=== PATIENT | female | born 1945 | race Two or more races ===

== ENCOUNTER → 2024-03-25 | Outpatient (CLI) | payer MEDICARE, BC, SELFPAY ==
[2024-03-25 14:21] LABS: Albumin, Serum 4.4 gm/dL (3.4-4.8); Anion Gap 6 (7-16); BUN/Creatinine Ratio 16 Ratio (12-20); Blood Urea Nitrogen 26 mg/dL (9-23); Calcium 9.9 mg/dL (8.3-10.6); Calcium (Corrected) 9.9 mg/dL (8.5-10.1); Carbon Dioxide 28.8 mMol/L (20.0-31.0); Chloride 104 mMol/L (98-107); Creatinine (Component) 1.6 mg/dL (0.6-1.3); Glucose 128 mg/dL (74-106); Osmolality,Calculated 284 (275-295); Phosphorous 2.2 mg/dL (2.4-5.1); Potassium 3.9 mMol/L (3.4-5.1); Sodium 139 mMol/L (136-145); eGFR 33 See Note
== END | disposition home or self-care (01) ==
LOC: COPL 13:19
PROVIDERS: PCP Family Medicine; Referring Provider Family Medicine; Visit Provider Family Medicine
DX: J44.1 Chronic obstructive pulmonary disease with (acute) exacerbation (principal)
CPT/HCPCS: 36415; 80069

== ENCOUNTER → 2024-03-28 | Outpatient (CLI) | payer MEDICARE, BC, SELFPAY ==
--- NOTE | 2024-03-28 11:00 | XR_ITS ---
Examination: CTA chest with intravenous contrast 2-D reconstructions 3-D reconstructions, vascular Date and time of exam: March 28, 2024 1107 hours INDICATIONS: COPD with intermittent shortness breath beginning one year ago CTDI: vol (mGy) 9.08 DLP: (mGycm) 219 Technique: Multiple axial sections of the thorax have been obtained. 3 mm slice thickness, from below the hemidiaphragms to above the apices of the lungs. Mediastinal and lung density settings have been obtained. 2-D sagittal and coronal reconstructions. 3-D angiographic renderings, 3-D volume renderings, 3D post processing, vascular maximum intensity projections obtained. Contrast administered is 60 cc Isovue-300. Low dose protocols were performed. One or more of the following dose reduction techniques were used; automated exposure control, adjustment of the mA and/or KV according to patient size, use of iterative reconstruction technique. Findings: No thoracic aortic aneurysmal dilatation No pulmonary artery emboli No paratracheal tracheobronchial or bronchopulmonary adenopathy Multiple bilateral subcentimeter pulmonary nodules as well as an 11 mm pulmonary nodule right lower lobe image 169, no definite change compared with May 25, 2023, excepting the 11 mm pulmonary nodule right lower lobe COPD with areas of airspace destruction No visualized liver or splenic lesion Absent gallbladder No pancreatic or adrenal mass Moderate thoracic spondylosis IMPRESSION: COPD Negative for pulmonary artery emboli 11 mm pulmonary nodule right lower lobe Recommend continued 6 month follow-up CT chest without contrast
== END | disposition home or self-care (01) ==
PROVIDERS: PCP Family Medicine; Referring Provider Physician Assistant; Visit Provider Physician Assistant
DX: J44.1 Chronic obstructive pulmonary disease with (acute) exacerbation (principal); R91.1 Solitary pulmonary nodule
CPT/HCPCS: 71275; A4649; Q9967

== ENCOUNTER → 2024-06-11 | Outpatient (CLI) | payer MEDICARE, BC, SELFPAY ==
--- NOTE | 2024-06-11 11:30 | XR_ITS ---
Examination: Screening digital mammography, bilateral Computer aided detection 3-D breast Tomosynthesis, bilateral Date and time of exam: June 11, 2024 1141 hours Compared to mammograms dating to July 08, 2015 Indication: Screening Technique: Nonmagnified MLO, CC views of the breasts to been obtained, reconstructed from 3-D Tomosynthesis images. R2 computer aided detection program utilized for evaluation of suspicious masses and/or abnormal calcifications. 3-D Tomosynthesis images obtained. Findings: The breasts are extremely dense, which limits the sensitivity of mammography 18 mm focal asymmetry outer left breast CC view, 6.5 cm from the nipple 8 mm focal asymmetry lower left breast MLO view, 8.8 cm from the nipple IMPRESSION: BI-RADS Category 0: Incomplete: Need additional imaging evaluation 18 mm focal asymmetry outer left breast CC view, recommend follow-up spot compression views upper outer quadrant left breast 8 mm focal asymmetry lower left breast MLO view, recommend follow-up spot compression views lower outer quadrant left breast as well as left breast sonography to complete the workup
== END | disposition home or self-care (01) ==
LOC: CDIM 11:13
PROVIDERS: Referring Provider Physician Assistant; Visit Provider Physician Assistant
DX: Z12.31 Encounter for screening mammogram for malignant neoplasm of breast (principal); N64.89 Other specified disorders of breast
CPT/HCPCS: 77063; 77067

== ENCOUNTER → 2024-07-10 | Outpatient (CLI) | payer MEDICARE, BC, SELFPAY ==
--- NOTE | 2024-07-10 14:27 | XR_ITS ---
Examination: Lumbar spine, 5 views Technique: Lumbar spine AP, lateral, coned lateral lower lumbar spine, bilateral obliques 5 views Exam date and time: July 10, 2024 1435 hours INDICATIONS: Low back pain one month radiating down both legs FINDINGS: Thoracolumbar levoscoliosis 15 degrees Advanced diffuse facet arthropathy No lumbar fracture Advanced diffuse lumbar degenerative disc disease Moderate lumbar spondylosis IMPRESSION: Advanced diffuse lumbar degenerative disc disease with significant spinal stenosis
== END | disposition home or self-care (01) ==
PROVIDERS: PCP Family Medicine; Referring Provider Family Medicine; Visit Provider Family Medicine
DX: M51.369 Other intervertebral disc degeneration, lumbar region without mention of lumbar back pain or lower extremity pain (principal); M48.061 Spinal stenosis, lumbar region without neurogenic claudication
CPT/HCPCS: 72110

== ENCOUNTER → 2024-07-12 | Outpatient (CLI) | payer MEDICARE, BC, SELFPAY ==
--- NOTE | 2024-07-12 15:00 | XR_ITS ---
Examination: Breast ultrasound, unilateral, left Date and time of exam: July 22, 2024 1515 hours INDICATIONS: Mammogram June 08, 2024 18 mm focal asymmetry outer left breast CC view, 8 mm focal asymmetry lower left breast MLO view Technique: Real-time gasca scale ultrasonographic imaging performed left breast including all 4 quadrants as well as nipple retroareolar and axillary region. Findings: 1:00 cyst 4 x 4 millimeter 2:00 cyst 3 x 3 mm No solid nodules 26 mm left axillary lymph node IMPRESSION: BI-RADS Category 2: Benign findings
== END | disposition home or self-care (01) ==
LOC: CDIM 15:02
PROVIDERS: Referring Provider Physician Assistant; Visit Provider Physician Assistant
DX: N60.02 Solitary cyst of left breast (principal)
CPT/HCPCS: 76641

== ENCOUNTER 2024-08-01 13:00 | Outpatient (RCR) | payer MEDICARE, BC, SELFPAY ==
--- NOTE | 2024-07-22 15:13 | PT.OIERPT ---
PT OP Initial Eval Patient Information Outpatient Physical Therapy Treatment Date: 07/22/24 Visit Reasons: BACK PAIN Medical Diagnosis: M54.16 Treatment Dx #1: Back Pain Treatment Dx #2: Difficulty Walking Start of Care: 07/22/24 Date of Onset: 6 months ago Smoking Status Smoking Status: Never smoker Initial Assessment Subjective: Pt is a 79 y/o female reports of chronic back pain worsening ~ 6 months ago. Pt's most recent xray showed severe diffuse DDD of the lumbar spine. Pt is pending MRI in a few weeks. Pt has limitation with standing, walking, sitting, chores, self care, balance, and recreational activities. Pt further mentioned she has COPD and uses O2 at night. Objective: L/S AROM (in sitting): all motions are 75 % towards end range Hip PROM: all motions are WFL except IR Hip MMTs: grossly 3+/5 Muscle Length: Hs tightness Special Test (+) slump Assessment: Pt demonstrate back pain with BLE weakness leading to difficulty with ADLs. Pt will attempt physical therapy if pain persist Pt will be refer back to provider for further consultation. Short Term and Group Home Goals 1) Decrease back pain to 2/10 in 6 wks to be able to sit and stand more than 30 mins 2) Increase hip MMTs grossly to 4-/5 in 6 wks to be able to walk more than 30 mins 3) Increase core strength WFL in 6 wks to be able to perform recreational activities 4) Indep with HEP Treatment Plan 1) Manual Therapy 2) Therapeutic Activities 3) Therapeutic Exercises 4) Modalities (ice, heat) Frequency and Duration: 2 x wk for 6 wks Certification Dates: 07/22/24 to 10/22/24 Procedure Charges OP PT Eval Mod Complex 30 minutes: Yes
--- NOTE | 2024-07-30 13:54 | PT.ODAYNRPT ---
PT Outpatient Daily Note OP Daily Note Outpatient Physical Therapy Treatment Date: 07/30/24 Visit Reasons: BACK PAIN Subjective: Pt's back is okay. Pt recently seen her PCP and will also be getting a neck MRI. Objective: Please see flow chart for list of ther ex performed Assessment: difficulty initiating posterior pelvic tilt, however, with practice patient was able to perform correctly. Pt's O2 sat in the 90s with supine exercises Plan: Continue with PT Length of Time (minutes) of Treatment: 30 Minutes Procedure Charges Therapeutic Exercise 30 minutes: Yes
--- NOTE | 2024-08-01 13:40 | PT.ODAYNRPT ---
PT Outpatient Daily Note OP Daily Note Outpatient Physical Therapy Treatment Date: 08/01/24 Visit Reasons: BACK PAIN Subjective: Pt reports she was sore after last session but was mild, resolved next day. Objective: Please see flow sheet for ther ex list. Assessment: Performed light manual HS stretch, pt tolerated well. Avoid laying pt flat in supine due to COPD, no SOB during PT session today. Plan: Assess response to treatment. Length of Time (minutes) of Treatment: 30 Minutes NEWSPAPER PRESS OPERATOR APPRENTICE Service Modifier Method I: Divide the number of min of care provided by the NEWSPAPER PRESS OPERATOR APPRENTICE/BE by the total min of care provided then multiply by 100. If greater than 11 percent modifier is required. Method II: Divide the total time of care provided to patient by 10 (round to the nearest whole number) and add 1 min. to set the minimum time requirement. If treatment total was 60 min., then 10% of 6 min PT CQ modifier applied: CQ Modifier applied Procedure Charges Therapeutic Exercise 30 minutes: Yes
== END 2024-08-05 23:59 | disposition home or self-care (01) ==
LOC: CPTX 13:00
PROVIDERS: PCP Physician Assistant; Referring Provider Physician Assistant; Visit Provider Physician Assistant
DX: M51.16 Intervertebral disc disorders with radiculopathy, lumbar region (principal); R26.2 Difficulty in walking, not elsewhere classified; R26.89 Other abnormalities of gait and mobility; J44.9 Chronic obstructive pulmonary disease, unspecified
CPT/HCPCS: 97110; 97162

== ENCOUNTER → 2024-08-06 | Outpatient (CLI) | payer MEDICARE, BC, SELFPAY ==
--- NOTE | 2024-08-06 15:30 | XR_ITS ---
Examination: MRI lumbar spine without contrast Date and time of exam: August 06, 2024 1617 hours INDICATIONS: Low back pain beginning 3 months ago, lumbar spine surgery 2015, radicular pain radiating to the legs Technique: Multiple MRI axial and sagittal sections lumbar spine. Sagittal T2-weighted images, TR 3500, TE 118 T1 weighted transverse sections, TR 688 T8.5, T2-weighted sagittal sections T1 weighted sagittal sections TR 621, TE 30 T2 axial sections, TR 4, 190, TE 84. Findings: Adequate alignment lumbar vertebral bodies No lumbar fracture Diffuse lumbar disc desiccation Advanced disc during all lumbar levels L5-S1 7 mm central lumbar disc bulge displacing both right and left S1 nerve roots and producing mild bilateral L5 ganglionic compression L4-L5 5 mm central lumbar disc bulge extending to the foraminal regions with mild bilateral L5 ganglionic compression L3-L4 6 mm central left paracentral disc bulge extending to the left foramen with moderate left L3 ganglionic compression L2-L3 5 mm central lumbar disc bulge L1-L2 8mm central paracentral disc bulge IMPRESSION: Prominent diffuse lumbar spinal stenosis as above
== END | disposition home or self-care (01) ==
PROVIDERS: PCP Physician Assistant; Referring Provider Physician Assistant; Visit Provider Physician Assistant
DX: M48.061 Spinal stenosis, lumbar region without neurogenic claudication (principal)
CPT/HCPCS: 72148

== ENCOUNTER → 2024-08-07 | Outpatient (CLI) | payer MEDICARE, BC, SELFPAY ==
--- NOTE | 2024-08-07 16:00 | XR_ITS ---
Examination: MRI cervical spine without intravenous contrast Date and time of exam: August 07, 2024 1710 hours Comparison November 07, 2006 Technique: Multiple axial and sagittal sections of the cervical spine to been obtained. T2 weighted sagittal sections, TR 3, 270, TE 117 T1-weighted sagittal sections, TR 500, TE 11 T1-weighted axial sections, TR 607, TE 12, axial sections TR 18, TE 27 and T2 weighted transverse sections, TR 3920, TE 122. Findings: Severe cervical dextroscoliosis Grade 1 anterolisthesis C3 on C4 C4 on C5 No cervical fracture Diffuse cervical disc desiccation All of the images are degraded by patient motion C3-C4 3 mm central subarticular osteophyte disc complex with advanced left neural foraminal stenosis C4-C5 advanced left neural foraminal stenosis C6-C7 moderate bilateral neural foraminal stenosis IMPRESSION: Limited study, all of the images are degraded by patient motion C3-C4 moderate to severe overall spinal stenosis, 3 mm central subarticular osteophyte disc complex with advanced left neural foraminal stenosis C4-C5 advanced left neural foraminal stenosis C6-C7 moderate bilateral neural foraminal stenosis
== END | disposition home or self-care (01) ==
LOC: SMRI 15:33
PROVIDERS: PCP Physician Assistant; Referring Provider Physician Assistant; Visit Provider Physician Assistant
DX: M48.02 Spinal stenosis, cervical region (principal); M25.78 Osteophyte, vertebrae
CPT/HCPCS: 72141

== ENCOUNTER 2024-09-03 13:30 | Outpatient (RCR) | payer MEDICARE, BC, SELFPAY ==
--- NOTE | 2024-08-06 14:21 | PT.ODAYNRPT ---
PT Outpatient Daily Note OP Daily Note Outpatient Physical Therapy Treatment Date: 08/06/24 Visit Reasons: BACK PAIN Subjective: Pt's back is still hurting but seems to be able to sit and stand a little longer. Pt mentioned she likes to lean over her reclining chair which may also be irritating her spine and neck. Objective: Please see flow chart for list of ther ex performed Assessment: added more sitting exercise with good tolerance. Pt saturated in 95's-97's in today's session Plan: Continue with PT Length of Time (minutes) of Treatment: 30 Minutes Procedure Charges Therapeutic Exercise 30 minutes: Yes
--- NOTE | 2024-08-08 14:06 | PT.ODAYNRPT ---
PT Outpatient Daily Note OP Daily Note Outpatient Physical Therapy Treatment Date: 08/08/24 Visit Reasons: BACK PAIN Subjective: Pt's back is doing okay. No new concerns to report. Objective: Please see flow chart for list of ther ex perfomed Assessment: patient instructed on tieing her therband at home for the rows exercises. Pt had difficulty completing supine nerve floss exercise due to cramping of the lower extremities. Plan: Continue with PT Length of Time (minutes) of Treatment: 30 Minutes Procedure Charges Therapeutic Exercise 30 minutes: Yes
--- NOTE | 2024-08-13 14:51 | PT.ODAYNRPT ---
PT Outpatient Daily Note OP Daily Note Outpatient Physical Therapy Treatment Date: 08/13/24 Visit Reasons: BACK PAIN Subjective: Pt reports back is doing ok, no new complaints. Objective: Please see flow sheet for ther ex list. Assessment: Pt requires rest breaks in between exercises due to pt get SOB pt has COPD. Plan: Continue with pOC. Length of Time (minutes) of Treatment: 30 Minutes Procedure Charges Therapeutic Exercise 30 minutes: Yes
--- NOTE | 2024-08-15 14:38 | PT.ODAYNRPT ---
PT Outpatient Daily Note OP Daily Note Outpatient Physical Therapy Treatment Date: 08/15/24 Visit Reasons: BACK PAIN Subjective: Pt LBP today and mentioned she is feeling a little off today. Pt c/o L arm pain that goes from neck down to the hand, pt is having a hard time relaxing today. 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 Objective: Please see flow sheet for ther ex list. Pt spo2 during PT session 95% at RA. Assessment: Pt demonstrates poor activity tolerance today due to c/o L UE symptoms. Plan: Assess response to treatment. Length of Time (minutes) of Treatment: 30 Minutes BAND TUMBLER Service Modifier Method I: Divide the number of min of care provided by the BAND TUMBLER/GAS AND OIL CHECKER by the total min of care provided then multiply by 100. If greater than 11 percent modifier is required. Method II: Divide the total time of care provided to patient by 10 (round to the nearest whole number) and add 1 min. to set the minimum time requirement. If treatment total was 60 min., then 10% of 6 min PT CQ modifier applied: CQ Modifier applied Procedure Charges Therapeutic Exercise 30 minutes: Yes
--- NOTE | 2024-08-20 15:29 | PT.ODAYNRPT ---
PT Outpatient Daily Note OP Daily Note Outpatient Physical Therapy Treatment Date: 08/20/24 Visit Reasons: BACK PAIN Subjective: Pt feels physical therapy exercises alleviate back pain. Pt wants to complete therapy for the back than start her neck. Pt wants to find a place that will massage her whole back. Objective: Please see flow chart for list of ther ex performed Assessment: advised to seek massage therapist for body massage but decline due to fear of therapist hurting her more. Progress patient's low row and row exercises to standing with good tolerance Plan: Continue with PT Length of Time (minutes) of Treatment: 30 Minutes Procedure Charges Therapeutic Exercise 30 minutes: Yes
--- NOTE | 2024-08-22 15:01 | PT.ODAYNRPT ---
PT Outpatient Daily Note OP Daily Note Outpatient Physical Therapy Treatment Date: 08/22/24 Visit Reasons: BACK PAIN Subjective: Pt's back is doing okay. Pt mentioned her hip feels stiff. Objective: Please see flow chart for list of ther ex performed Assessment: progress patient to more hip exercises and core strengthening with good tolerance Plan: Continue with PT Length of Time (minutes) of Treatment: 30 Minutes Procedure Charges Therapeutic Exercise 30 minutes: Yes
--- NOTE | 2024-08-29 14:50 | PT.ODAYNRPT ---
PT Outpatient Daily Note OP Daily Note Outpatient Physical Therapy Treatment Date: 08/29/24 Visit Reasons: BACK PAIN Subjective: Pt's back is okay. Pt mentioned her condenser went out and didn't have O2 for the night. Pt felt really fatigue last night. Objective: Please see flow chart for list of ther ex performed Assessment: tolerate exercises with minimal pain Plan: Continue with PT Length of Time (minutes) of Treatment: 30 Minutes Procedure Charges Therapeutic Exercise 30 minutes: Yes
--- NOTE | 2024-09-03 14:30 | PT.ODAYNRPT ---
PT Outpatient Daily Note OP Daily Note Outpatient Physical Therapy Treatment Date: 09/03/24 Visit Reasons: BACK PAIN Subjective: Pt's legs are feeling weaker. Pt mention her arms are getting worse especially the right one. Pt will see neurologist on the 16 of september. Objective: Please see flow chart for list of ther ex performed Assessment: tolerate exercises with minimal pain Plan: Continue with PT Length of Time (minutes) of Treatment: 30 Minutes Procedure Charges Therapeutic Exercise 30 minutes: Yes
== END 2024-09-04 23:59 | disposition home or self-care (01) ==
LOC: CPTX 13:30
PROVIDERS: PCP Physician Assistant; Referring Provider Physician Assistant; Visit Provider Physician Assistant
DX: M54.16 Radiculopathy, lumbar region (principal); R26.2 Difficulty in walking, not elsewhere classified; R26.89 Other abnormalities of gait and mobility; J44.9 Chronic obstructive pulmonary disease, unspecified; Z99.81 Dependence on supplemental oxygen
CPT/HCPCS: 97110

== ENCOUNTER 2024-09-05 14:23 | Outpatient (RCR) | payer MEDICARE, BC, SELFPAY ==
--- NOTE | 2024-09-05 14:42 | PT.ODS1RPT ---
PT OP Progress/Discharge Note Date of Service: 09/05/24 Progress Note/DC Note Progress Note/Discharge Note: DC Note Patient Information Visit Reasons: BACK PAIN Medical Diagnosis: M54.16 Treatment Dx #1: Back Pain Service Continue Service or Discharge: Discharge Discharge Date: 09/05/24 Status Subjective: Pt's back is okay. Pt still has pain down the legs but will like to stop physical therapy due to wanting to start neck therapy. Pt has been able to walk, stand, perform chores, and self care with less limitaiton. Objective: L/S AROM: all motions are WFL Hip PROM: all motions are WFL Hip MMTs: grossly 3+/5 Assessment: Pt demonstrate functional L/S mobility and core strength allowing her to resume ADLs, chores, and self care, and ambulate. At this time Pt will no longer benefit from physical therapy due to minimal progression towards goals. Pt was instructed on HEP last session and educated to continue exercises to maintain overall mobility. Pt performed all exercises safely, thank you for your referrals. Plan: D/C home with HEP and follow up with MD MANRIQUE Procedure Charges Therapeutic Exercise 30 minutes: Yes
== END 2024-10-05 23:59 | disposition home or self-care (01) ==
LOC: CPTX 14:23
PROVIDERS: PCP Physician Assistant; Referring Provider Physician Assistant; Visit Provider Physician Assistant
DX: M51.16 Intervertebral disc disorders with radiculopathy, lumbar region (principal); J44.9 Chronic obstructive pulmonary disease, unspecified; R26.2 Difficulty in walking, not elsewhere classified; R26.89 Other abnormalities of gait and mobility; G89.29 Other chronic pain
CPT/HCPCS: 97110

== ENCOUNTER 2024-09-17 14:34 | Emergency (ER) | payer MEDICARE, BC, SELFPAY ==
[2024-09-17 14:39] VITALS: BMI 24.4
[2024-09-17 15:16] VITALS: BP 169/85; PULSE 79; RESP 18; TEMP 37.2; O2SAT 96
--- NOTE | 2024-09-17 15:26 | XR_ITS ---
Examination: CT cervical spine without contrast 2-D sagittal reconstructions 2-D coronal reconstructions 3-D reconstructions. Exam date and time:September 17, 2024 1539 hours INDICATIONS: Patient fell today with injury to the neck, neck pain CTDI:vol (mGy) 12 DLP: (mGycm) 255 Technique: Multiple 2 mm axial sections of the cervical spine have been obtained. The coronal and sagittal reconstructions have been obtained. 3-D reconstructions have been obtained. Low dose protocols were performed. One or more of the following dose reduction techniques were used; automated exposure control, adjustment of the mA and/or KV according to patient size, use of iterative reconstruction technique. Findings: Axial sections demonstrate intact base of the skull. Grade 1 anterolisthesis C3 on C4 C1 exhibit satisfactory relationship to the odontoid. No acute cervical vertebral body fracture seen. Alignment posterior spinous processes satisfactory. Impression: Study is limited secondary to patient tremors and nonstandard positioning No gross fracture Recommend 3 view plain series cervical spine follow-up
--- NOTE | 2024-09-17 15:26 | XR_ITS ---
Examination: CT maxillofacial, without intravenous contrast. 2-D sagittal reconstructions. 3-D reconstructions. Date and time of exam:September 17, 2024 1539 hours INDICATIONS: Patient fell today with injury to the face, facial pain CTDI: vol (mGy):18 DLP: (mGycm):328 Technique: Multiple axial images of maxillofacial region, 3.0 mm slice thickness. 2-D sagittal and coronal reconstructions. 3-D reconstructions. Low dose protocols were performed. One or more of the following dose reduction techniques were used; automated exposure control, adjustment of the mA and/or KV according to patient size, use of iterative reconstruction technique. Findings: Patient motion and nonstandard views significantly limits this study Frontal bone appears intact as well as orbital rims No nasal bone fracture No depression zygomatic arches Maxilla mandible grossly intact IMPRESSION: Significantly limited study No gross fracture.
--- NOTE | 2024-09-17 15:26 | XR_ITS ---
Examination: CT brain head without contrast. 2-D sagittal coronal reconstructions Date and time of exam:September 17, 2024 1539 hours INDICATIONS: Patient fell today with injury to the head, head pain CTDI: vol (mGy):43 DLP: (mGycm):848 Technique: Multiple CT axial sections of the brain have been obtained, 5 mm slice thickness. Contrast has not been administered. 2-D sagittal, coronal reconstructions have been obtained Low dose protocols were performed. One or more of the following dose reduction techniques were used; automated exposure control, adjustment of the mA and/or KV according to patient size, use of iterative reconstruction technique. Findings: No significant ventricular enlargement. Intra-axial or extra-axial hemorrhage density is not seen. No mass effect or midline shift Basal cisterns are not remarkable. Fourth ventricle is midline. Cranial vault intact. Impression: Negative for acute hemorrhage, mass effect or midline shift
--- NOTE | 2024-09-17 15:27 | PD.EDFALL ---
ED Fall Injury RME/HPI General Chief Complaint: Fall Stated Complaint: GROUND LEVEL FALL ON MONDAY, HIT HER HEAD Time Seen by Provider: 09/17/24 15:01 Arrival date/time: 09/17/24 14:34 This is a 79-year-old woman that comes in today with complaints of head injury. Patient states she was sitting on the toilet and she went to pick something up and fell forward. Patient states she fell into the shower face first. Patient denies any loss of consciousness. Patient denies any vision issues. Patient denies any vomiting. Patient has bruising to her face forehead. Patient complains of mild pain to her head. Related Data Home Medications ?Medication ?Instructions ?Recorded ?Confirmed Estradiol/Norethindrone Acet 0.5 mg PO DAILY ##0 03/26/17 12/19/23 (Amabelz 1 mg-0.5 mg Tablet) Tramadol Hcl 50 mg PO QDAY PRN Pain (Scale 03/26/17 12/19/23 Score 4-6) ##0 levothyroxine 100 mcg tablet 100 mcg PO ACBR #0 tabs 03/26/17 12/19/23 (Synthroid) lorazepam 2 mg tablet 1 mg PO HS PRN Anxiety ##0 03/26/17 12/19/23 pantoprazole 40 mg tablet,delayed 40 mg PO QDAY ##0 03/26/17 12/19/23 release (Protonix) azathioprine 50 mg tablet 50 mg PO QDAY 02/07/23 12/19/23 fluticasone fur. 100 mcg-umeclid 1 inh inhalation QDAY 02/07/23 12/19/23 62.5 mcg-vilant 25 mcg inhalat.powder (Trelegy Ellipta) fluticasone fur. 100 mcg-umeclid 1 inh inhalation QDAY 02/07/23 12/19/23 62.5 mcg-vilant 25 mcg inhalat.powder (Trelegy Ellipta) folic acid 1 mg tablet 1 mg PO QDAY 02/07/23 12/19/23 loratadine 10 mg tablet 10 mg PO QDAY 02/07/23 12/19/23 prednisone 5 mg tablet 5 mg PO QDAY 02/07/23 12/19/23 Allergies Allergy/AdvReac Type Severity Reaction Status Date / Time lidocaine Allergy Mild Vomiting Verified 09/17/24 14:41 oxycodone Allergy Unknown Itching Verified 09/17/24 14:41 celery Allergy Verified 09/17/24 14:41 clonidine Allergy Verified 09/17/24 14:41 coffee (Coffea arabica) Allergy Verified 09/17/24 14:41 egg yolk Allergy Verified 09/17/24 14:41 garlic Allergy Verified 09/17/24 14:41 hops Allergy Verified 09/17/24 14:41 hydrocodone (From Vicodin) Allergy Verified 09/17/24 14:41 lactose Allergy Verified 09/17/24 14:41 mustard Allergy Verified 09/17/24 14:41 procaine Allergy Verified 09/17/24 14:41 vanilla extract flavor Allergy Verified 09/17/24 14:41 aspirin AdvReac Mild JITTERY Verified 09/17/24 14:41 AND UPSET STOMACH pseudoephedrine AdvReac Mild INCREASED Verified 09/17/24 14:41 BLOOD PRESSURE CODFISH Allergy Uncoded 09/17/24 14:41 STRING BEANS Allergy Uncoded 09/17/24 14:41 Course Orders Category Date Time Status CT cervical spine wo con Stat Exams 09/17/24 15:[address] facial bones wo con Stat Exams 09/17/24 15:[address] head/brain wo con Stat Exams 09/17/24 15:26 Ordered Vital Signs Vital signs: Vital Signs Temperature 98.9 F 09/17/24 15:16 Pulse Rate 79 09/17/24 15:16 Respiratory Rate 18 09/17/24 15:16 Blood Pressure 169/85 H 09/17/24 15:16 Pulse Oximetry (%) 96 09/17/24 15:16 Oxygen Delivery Method Room Air 09/17/24 15:16 Discharge Plan Prescriptions/Referrals Prescriptions/Med Rec: No Action levothyroxine [Synthroid] 100 MCG tablet 100 mcg PO ACBR Qty: 0 lorazepam 2 MG tablet 1 mg PO HS PRN (Reason: Anxiety) Qty: 0 pantoprazole [Protonix] 40 MG tablet,delayed release (DR/EC) 40 mg PO QDAY Qty: 0 Patient Comments: TO SUPPRESS GASTRIC SECRETIONS Estradiol/Norethindrone Acet (Amabelz 1 mg-0.5 mg Tablet) 1 EACH tablet 0.5 mg PO DAILY Qty: 0 Tramadol Hcl 50 MG tablet 50 mg PO QDAY PRN (Reason: Pain (Scale Score 4-6)) Qty: 0 prednisone 5 mg Tablet 5 mg PO QDAY azathioprine 50 mg Tablet 50 mg PO QDAY folic acid 1 mg Tablet 1 mg PO QDAY loratadine 10 mg Tablet 10 mg PO QDAY Trelegy Ellipta 100-62.5-25 mcg Blister With Device 1 inh INHALATION QDAY Trelegy Ellipta 100-62.5-25 mcg Blister With Device 1 inh INHALATION QDAY Patient/Caregiver Discharge Instructions Print Language: Ukrainian
--- NOTE | 2024-09-17 15:33 | PD.EDRME ---
Rapid Medical Screening Exam [facility] Arrival date/time: 09/17/24 14:34 This is a 79-year-old woman that comes in today with complaints of head injury. Patient states she was sitting on the toilet and she went to pick something up and fell forward. Patient states she fell into the shower face first. Patient denies any loss of consciousness. Patient denies any vision issues. Patient denies any vomiting. Patient has bruising to her face forehead. Patient complains of mild pain to her head. Patient states that she was sent by her primary doctor and physical therapist because they are afraid that she has broken bones. I have greeted and performed a focused initial assessment of this patient. Initial appropriate labs ordered at this time. A comprehensive ED assessment and evaluation of the patient and analysis of all test and completion of medical decision making process will be conducted by additional ED provider. Chief Complaint: Fall Time Seen by Provider: 09/17/24 15:01 Vital signs: Vital Signs Temperature 98.9 F 09/17/24 15:16 Pulse Rate 79 09/17/24 15:16 Respiratory Rate 18 09/17/24 15:16 Blood Pressure 169/85 H 09/17/24 15:16 Pulse Oximetry (%) 96 09/17/24 15:16 Oxygen Delivery Method Room Air 09/17/24 15:16
[2024-09-17 17:00] VITALS: BP 173/89; PULSE 74; RESP 18; TEMP 36.7; O2SAT 97
--- NOTE | 2024-09-17 17:19 | PC.NURSE ---
PATIENT STATES SHE IS GOING TO [facility] BECAUSE THEY ARE NOT GOING TO X RAY HER ARM AND SHE IS HUNGRY. PATIENT SEEN [facility].
== END 2024-09-17 17:39 | disposition left against medical advice (07) ==
PROVIDERS: Emergency Provider Emergency Medicine
DX: S00.83XA Contusion of other part of head, initial encounter (principal); W19.XXXA Unspecified fall, initial encounter; Z53.29 Procedure and treatment not carried out because of patient's decision for other reasons
CPT/HCPCS: 70450; 70486; 72125; 99281

== ENCOUNTER 2024-10-03 13:30 | Outpatient (RCR) | payer MEDICARE, BC, SELFPAY ==
--- NOTE | 2024-09-10 13:58 | PTNOTE_ITS ---
PT OP Initial Eval Patient Information Outpatient Physical Therapy Treatment Date: 09/10/24 Visit Reasons: CERVICAL RADICULOPATHY Medical Diagnosis: Cervical Radiculopathy Treatment Dx #1: Neck Pain Start of Care: 09/10/24 Date of Onset: 5 years ago Smoking Status Smoking Status: Never smoker Initial Assessment Subjective: Pt is a 79 y/o female reports of worsening neck pain (12/15) with arm weakness R>L worsening lately. Pt's most recent MRI showed multi-level moderate to severe stenosis. Pt has limitation with gripping, lifting, chores, self care, cooking, cleaning, and performing recreational activities. Pt has been diagnosed with dystonia ~ 5 years ago. 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 Short Term and Dye House Worker Goals 1) Increase c/s AROM WFL in 6 wks to be able to perform chores 2) Decrease neck pain to 2/10 in 6 wks to be able to perform sit more than 30 mins 3) Increase BUE MMTs grossly to 4/5 in 6 wks to be able to perform recreational activities 4) Increase right product manager financial services strength to 45 lbs in 6 wks to be able to perform self care activities 5) Indep with HEP Treatment Plan 1) Manual Therapy 2) Therapeutic Activities 3) Therapeutic Exercises 4) Modalities (ice, heat) Frequency and Duration: 2 x wk for 6 wks Certification Dates: 09/10/24 to 12/11/24 Procedure Charges OP PT Eval Mod Complex 30 minutes: Yes
--- NOTE | 2024-09-17 14:15 | PT.ODAYNRPT ---
PT Outpatient Daily Note OP Daily Note Outpatient Physical Therapy Treatment Date: 09/17/24 Visit Reasons: CERVICAL RADICULOPATHY Assessment: Pt came into today's session and reported that she has fallen middle of last week which she hit her face, right shoulder, and left forearm. Pt called PCP for an appt but was advised to head to the ER. Pt did not follow MD's recommendation and decided to stay home the next few days. Pt exhibit significant bruising of the face and was advised to follow up with PCP or ER for further clearance. physical therapy was withheld for the day and until further notice.
--- NOTE | 2024-09-19 14:43 | PT.ODAYNRPT ---
PT Outpatient Daily Note OP Daily Note Outpatient Physical Therapy Treatment Date: 09/19/24 Visit Reasons: CERVICAL RADICULOPATHY Subjective: Pt's neck is okay. Pt went to the ER and all imaging clear/negative. No imaging of the shoulder was recommended. Objective: Please see flow chart for list of ther ex performed Assessment: difficulty performing nerve floss due to arm fatigue, however, able to complete instructed reps after rest. Heat with stretching helped neck pain Plan: Continue with PT Length of Time (minutes) of Treatment: 30 Minutes Procedure Charges Therapeutic Exercise 30 minutes: Yes
--- NOTE | 2024-09-24 14:30 | PTNOTE_ITS ---
PT Outpatient Daily Note OP Daily Note Outpatient Physical Therapy Treatment Date: 09/24/24 Visit Reasons: CERVICAL RADICULOPATHY Subjective: Pt's neck feels better. Pt also notice less intense right arm pain. Objective: Please see flow chart for list of ther ex performed Assessment: cues to decrease upper trape recruitment with nerve floss and head [place] exerci ses. Improved c/s flexibility post PT session with less left sidebend noted Plan: Continue with PT Length of Time (minutes) of Treatment: 30 Minutes Procedure Charges Therapeutic Exercise 15 minutes: Yes Manual Section Weaver 15 minutes: Yes
--- NOTE | 2024-09-26 14:20 | PT.ODAYNRPT ---
PT Outpatient Daily Note OP Daily Note Outpatient Physical Therapy Treatment Date: 09/26/24 Visit Reasons: CERVICAL RADICULOPATHY Subjective: Pt's neck is better and more loose lately. Pt also notice less arm pain. Pt's arms very sore after last session Objective: Please see flow chart for list of ther ex performed Assessment: decrease upper trape and SCM tightness post PT session. No resistance band today due to reported soreness post last session Plan: Continue with PT Length of Time (minutes) of Treatment: 30 Minutes Procedure Charges Therapeutic Exercise 15 minutes: Yes Manual Analyst Competitive Intelligence 15 minutes: Yes
--- NOTE | 2024-10-01 14:31 | PT.ODAYNRPT ---
PT Outpatient Daily Note OP Daily Note Outpatient Physical Therapy Treatment Date: 10/01/24 Visit Reasons: CERVICAL RADICULOPATHY Subjective: Pt's neck is better. Pt mentioned that less arm pain; pain is up to the elbow now. Objective: Please see flow chart for list of ther ex performed Assessment: progressing with c/s AROM and cues to correct head position into neutral. Towards the end of the session; patient was able to keep head into neutral position with arm exercises Plan: Continue with PT Length of Time (minutes) of Treatment: 30 Minutes Procedure Charges Therapeutic Exercise 30 minutes: Yes
--- NOTE | 2024-10-03 14:04 | PT.ODAYNRPT ---
PT Outpatient Daily Note OP Daily Note Outpatient Physical Therapy Treatment Date: 10/03/24 Visit Reasons: CERVICAL RADICULOPATHY Subjective: Pt's neck is more sore after last session. Pt continues to report of less radicular pain down the arms. Objective: Please see flow chart for list of ther ex performed Assessment: tolerate exercises with minimal pain Plan: Continue with PT Length of Time (minutes) of Treatment: 30 Minutes Procedure Charges Therapeutic Exercise 30 minutes: Yes
== END 2024-10-05 23:59 | disposition home or self-care (01) ==
LOC: CPTX 13:30
PROVIDERS: PCP Physician Assistant; Referring Provider Physician Assistant; Visit Provider Physician Assistant
DX: M54.12 Radiculopathy, cervical region (principal); G24.9 Dystonia, unspecified; R26.89 Other abnormalities of gait and mobility
CPT/HCPCS: 97110; 97140; 97162

== ENCOUNTER 2024-10-10 13:30 | Outpatient (RCR) | payer MEDICARE, BC, SELFPAY ==
--- NOTE | 2024-10-08 15:14 | PT.ODAYNRPT ---
PT Outpatient Daily Note OP Daily Note Outpatient Physical Therapy Treatment Date: 10/08/24 Visit Reasons: neck pain Subjective: Pt's neck is less tight. Pt mentioned she was less sore after last session and wants to stick to intensity. Objective: Please see flow chart for list of ther ex performed Assessment: tolerate exercises with minimal pain; less cues given to patient for head posture correction Plan: Continue with PT Length of Time (minutes) of Treatment: 30 Minutes Procedure Charges Therapeutic Exercise 30 minutes: Yes
--- NOTE | 2024-10-10 15:47 | PT.ODS1RPT ---
PT OP Progress/Discharge Note Date of Service: 10/10/24 Progress Note/DC Note Progress Note/Discharge Note: DC Note Patient Information Visit Reasons: neck pain Medical Diagnosis: Cervical Radiculopathy Treatment Dx #1: Neck Pain Service Continue Service or Discharge: Discharge Discharge Date: 10/10/24 Status Subjective: Pt's neck is a little better with less arm pain since starting physical therapy. Pt still has limitation with ADLs, however, it's been easier to perform tasks. At this time Pt will like to stop physical therapy for her neck and work on balance and LE strength. Objective: C/S AROM: all motions are 50% towards end range BUE AROM: all motions are WNL BUE MMTs: grossly 3/5 Search Optimization Analyst Strength L: 53 lbs R: 40 lbs Assessment: Pt demonstrate slight improvement with c/s mobility and overall BUE strength allowing her to resume light ADLs with less limitation. Pt has partially met set goals in therapy. Pt was instructed on HEP last session and educated to continue exercises to maintain overall mobility. Pt performed all exercises safely, thank you for your referrals. Plan: D/C home with HEP and follow up with MD MANRIQUE Procedure Charges Therapeutic Exercise 15 minutes: Yes Manual Turn Supervisor 15 minutes: Yes
== END 2024-11-04 23:59 | disposition home or self-care (01) ==
LOC: CPTX 13:30
PROVIDERS: PCP Physician Assistant; Referring Provider Physician Assistant; Visit Provider Physician Assistant
DX: M54.12 Radiculopathy, cervical region (principal); M48.02 Spinal stenosis, cervical region
CPT/HCPCS: 97110; 97140

== ENCOUNTER 2024-10-24 13:30 | Outpatient (RCR) | payer MEDICARE, BC, SELFPAY ==
--- NOTE | 2024-10-22 13:39 | PTNOTE_ITS ---
PT OP Initial Eval Patient Information Visit Reasons: GAIT AND BALANCE Medical Diagnosis: Decrease Balance; Gait Difficulty Treatment Dx #1: Gait Difficulty Treatment Dx #2: Balance Deficits Start of Care: 10/22/24 Date of Onset: 6 months ago Smoking Status Smoking Status: Never smoker Initial Assessment Subjective: Pt is a 79 y/o female reports of BLE weakness, balance deficits, and gait difficulty ~ 6 months ago. Pt further reports of decrease O2 saturation lately at home. Pt will be consulting with supervisor cytogenetic laboratory soon. Pt has limitation with prolonged walking, standing, balance, chores, self care, stairs, and performing recreational activities. Objective: BLE AROM: all motions are WFL BLE MMTs: grossly 3+/5 Sit-Stand: 12 reps TU sec Sharpen Romber sec O2 sat RA (sitting): 95 % O2 sat RA (post sit to stand): 92% Assessment: Pt demonstrate BLE weakness and decrease endurance leading to difficulty with ADLs. Pt will benefit from physical therapy to increase mobility, strength, and work on ambulation. Short Term and Nuclear Criticality Safety Engineer Goals 1) Increase BLE MMTs grossly to 4/5 in 6 wks to be able to walk more than 30 mins 2) Increase sharpen romber sec in 6 wks to be able to perform chores 3) Improved overall endurance in 6 wks to be able to cook and clean longer 4) Improved on overall dynamic balance in 6 wks to prevent future falls 5) Indep with HEP Treatment Plan 1) Manual Therapy 2) Therapeutic Activities 3) Therapeutic Exercises 4) Balance Training 5) Gait Training Frequency and Duration: 2 x wk for 6 wks Certification Dates: 10/22/24 to 01/22/25 Procedure Charges OP PT Eval Mod Complex 30 minutes: Yes
--- NOTE | 2024-10-24 14:41 | PTNOTE_ITS ---
PT Outpatient Daily Note OP Daily Note Outpatient Physical Therapy Treatment Date: 10/24/24 Visit Reasons: GAIT AND BALANCE Subjective: Pt reports she does light exercise once in a while at home. Objective: Please see flow sheet for ther ex list. Assessment: Pt instructed on closed chain interventions, pt desaturates with activities spo2 85% but recovers after 30-50 seconds with rest and pursed lip breathing. Plan: Continue with pOC. Length of Time (minutes) of Treatment: 30 Minutes SORTING MACHINE ATTENDANT Service Modifier Method I: Divide the number of min of care provided by the SORTING MACHINE ATTENDANT/BE by the total min of care provided then multiply by 100. If greater than 11 percent modifier is required. Method II: Divide the total time of care provided to patient by 10 (round to the nearest whole number) and add 1 min. to set the minimum time requirement. If treatment total was 60 min., then 10% of 6 min PT CQ modifier applied: CQ Modifier applied Procedure Charges Therapeutic Exercise 30 minutes: Yes
== END 2024-11-04 23:59 | disposition home or self-care (01) ==
LOC: CPTX 13:30
PROVIDERS: Referring Provider Physician Assistant; Visit Provider Physician Assistant
DX: R26.89 Other abnormalities of gait and mobility (principal); R53.1 Weakness; R26.2 Difficulty in walking, not elsewhere classified
CPT/HCPCS: 97110; 97162

== ENCOUNTER → 2024-11-27 | Outpatient (CLI) | payer MEDICARE, BC, SELFPAY ==
--- NOTE | 2024-11-27 15:00 | XR_ITS ---
Examination: CT chest, without intravenous contrast. Sagittal and coronal 2-D reconstructions. Exam date and time: November 27, 2024 1510 hours INDICATIONS: Diagnosis chronic obstructive pulmonary disease with chronic shortness of breath, multiple subcentimeter pulmonary nodules as well as 11 mm pulmonary nodule right lower lobe on CT chest March 28, 2024 CTDI:vol (mGy) 8.51 DLP: (mGycm) 271 Technique: Multiple 3.0 mm axial sections of the chest to been obtained. Bone and lung density settings are obtained. Sagittal and coronal 2-D reconstructions have been obtained. Low dose protocols were performed. One or more of the following dose reduction techniques were used; automated exposure control, adjustment of the mA and/or KV according to patient size, use of iterative reconstruction technique. Findings: No thoracic aortic aneurysm dilatation Pulmonary artery segments not enlarged. Prominent coronary artery calcification No paratracheal tracheobronchial or bronchopulmonary adenopathy Stable bilateral pulmonary nodules No new pulmonary nodules No liver or splenic lesion Prominent osteopenia IMPRESSION: Heavy coronary artery calcification Stable bilateral pulmonary nodules compared with March 28, 2024
== END | disposition home or self-care (01) ==
LOC: CCTX 14:44
PROVIDERS: PCP Physician Assistant; Referring Provider Physician Assistant; Visit Provider Physician Assistant
DX: R91.8 Other nonspecific abnormal finding of lung field (principal); I25.10 Atherosclerotic heart disease of native coronary artery without angina pectoris
CPT/HCPCS: 71250

== ENCOUNTER 2024-12-05 13:30 | Outpatient (RCR) | payer MEDICARE, BC, SELFPAY ==
--- NOTE | 2024-11-05 13:54 | PT.ODAYNRPT ---
PT Outpatient Daily Note OP Daily Note Outpatient Physical Therapy Treatment Date: 11/05/24 Visit Reasons: gait and balance Subjective: Pt reports she has been performing HEP. Pt requesting to work more on B LE strengthening. Objective: Please see flow sheet for ther ex list. Assessment: Progressed strengthening interventions, pt c/o muscle fatigue but no pain to report. Pt spo2 92-95% during PT session. Plan: Continue with poC. Length of Time (minutes) of Treatment: 30 Minutes CHILD WELFARE DIRECTOR Service Modifier Method I: Divide the number of min of care provided by the CHILD WELFARE DIRECTOR/BE by the total min of care provided then multiply by 100. If greater than 11 percent modifier is required. Method II: Divide the total time of care provided to patient by 10 (round to the nearest whole number) and add 1 min. to set the minimum time requirement. If treatment total was 60 min., then 10% of 6 min PT CQ modifier applied: CQ Modifier applied Procedure Charges Therapeutic Exercise 30 minutes: Yes
--- NOTE | 2024-11-07 15:09 | PT.ODAYNRPT ---
PT Outpatient Daily Note OP Daily Note Outpatient Physical Therapy Treatment Date: 11/07/24 Visit Reasons: gait and balance Subjective: Pt reports whatever we did last session helped with the pain in her legs. Objective: Please see flow sheet for ther ex list. Assessment: Pt demonstrates increase tolerance with closed chain interventions indicating progress. Plan: Continue with POC. Length of Time (minutes) of Treatment: 30 Minutes HYDROLOGIC MODELER Service Modifier Method I: Divide the number of min of care provided by the HYDROLOGIC MODELER/WARDROBE MANAGER by the total min of care provided then multiply by 100. If greater than 11 percent modifier is required. Method II: Divide the total time of care provided to patient by 10 (round to the nearest whole number) and add 1 min. to set the minimum time requirement. If treatment total was 60 min., then 10% of 6 min PT CQ modifier applied: CQ Modifier applied Procedure Charges Therapeutic Exercise 30 minutes: Yes
--- NOTE | 2024-11-12 15:04 | PT.ODAYNRPT ---
PT Outpatient Daily Note OP Daily Note Outpatient Physical Therapy Treatment Date: 11/12/24 Visit Reasons: gait and balance Subjective: Pt reports she is a little stiff today, did not due much. Objective: Please see flow sheet for ther ex list. Assessment: Pt motivated to participate with PT requires rest breaks due to SOB, spo2 88-96%, pt desaturates with activity but recovers in <20 seconds. Plan: Continue with pOC. Length of Time (minutes) of Treatment: 30 Minutes SOCIAL SCIENCES DEPARTMENT CHAIR Service Modifier Method I: Divide the number of min of care provided by the SOCIAL SCIENCES DEPARTMENT CHAIR/BE by the total min of care provided then multiply by 100. If greater than 11 percent modifier is required. Method II: Divide the total time of care provided to patient by 10 (round to the nearest whole number) and add 1 min. to set the minimum time requirement. If treatment total was 60 min., then 10% of 6 min PT CQ modifier applied: CQ Modifier applied Procedure Charges Therapeutic Exercise 30 minutes: Yes
--- NOTE | 2024-11-20 15:11 | PT.ODAYNRPT ---
PT Outpatient Daily Note OP Daily Note Outpatient Physical Therapy Treatment Date: 11/20/24 Visit Reasons: gait and balance Subjective: Pt reports she has not done much because it has been hot out. Objective: Please see flow sheet for ther ex list. Assessment: Pt requires rest breaks in between interventions due to SOB. Plan: Continue with poC. Length of Time (minutes) of Treatment: 30 Minutes RN IV THERAPY Service Modifier Method I: Divide the number of min of care provided by the RN IV THERAPY/BE by the total min of care provided then multiply by 100. If greater than 11 percent modifier is required. Method II: Divide the total time of care provided to patient by 10 (round to the nearest whole number) and add 1 min. to set the minimum time requirement. If treatment total was 60 min., then 10% of 6 min PT CQ modifier applied: CQ Modifier applied Procedure Charges Therapeutic Exercise 30 minutes: Yes
--- NOTE | 2024-11-22 15:36 | PT.ODAYNRPT ---
PT Outpatient Daily Note OP Daily Note Outpatient Physical Therapy Treatment Date: 11/22/24 Visit Reasons: gait and balance Subjective: Pt reports her breathing is a little more off than usual. Pt shared that she feels she is more SOB today due to the humidity outside. Objective: Please see flow sheet for ther ex list. Assessment: Pt motivated to complete interventions, requires short rest breaks to recover spo2. Pt desaturates to 88% wiht activity but recovers <12 seconds. Plan: Continue with POC. Length of Time (minutes) of Treatment: 30 Minutes APPLIANCE ASSEMBLER Service Modifier Method I: Divide the number of min of care provided by the APPLIANCE ASSEMBLER/BE by the total min of care provided then multiply by 100. If greater than 11 percent modifier is required. Method II: Divide the total time of care provided to patient by 10 (round to the nearest whole number) and add 1 min. to set the minimum time requirement. If treatment total was 60 min., then 10% of 6 min PT CQ modifier applied: CQ Modifier applied Procedure Charges Therapeutic Exercise 30 minutes: Yes
--- NOTE | 2024-11-26 14:05 | PTNOTE_ITS ---
PT Outpatient Daily Note OP Daily Note Outpatient Physical Therapy Treatment Date: 11/26/24 Visit Reasons: gait and balance Subjective: Pt reports the lights when out over the weekend, pt was crouched down reaching forward to unplug a cable when she lost her balance catching herself with her L arm. Pt has a small bandage on her L forearm with scrape, pt denies any other injuries. Objective: Please see flow sheet for ther ex list. Assessment: Pt demonstrates increase endurance indicated by less seated rest breaks during closed chain interventions. Plan: Continue with pOC. Length of Time (minutes) of Treatment: 30 Minutes EDUCATIONAL ADMINISTRATION TEACHER Service Modifier Method I: Divide the number of min of care provided by the EDUCATIONAL ADMINISTRATION TEACHER/BE by the total min of care provided then multiply by 100. If greater than 11 percent modifier is required. Method II: Divide the total time of care provided to patient by 10 (round to the nearest whole number) and add 1 min. to set the minimum time requirement. If treatment total was 60 min., then 10% of 6 min PT CQ modifier applied: CQ Modifier applied Procedure Charges Therapeutic Exercise 30 minutes: Yes
--- NOTE | 2024-11-28 14:08 | PT.ODAYNRPT ---
PT Outpatient Daily Note OP Daily Note Outpatient Physical Therapy Treatment Date: 11/28/24 Visit Reasons: gait and balance Subjective: Pt reports she is doing ok but not sure of her progress with her balance., Objective: Please see flow sheet for ther ex list. Assessment: Added interventions completed with muscle fatigue. Dyspnea present wtih activity but pt recovers with rest, spo2 92-96% with ther ex. Plan: Continue with pOC. Length of Time (minutes) of Treatment: 30 Minutes MANAGER PLAN Service Modifier Method I: Divide the number of min of care provided by the MANAGER PLAN/BE by the total min of care provided then multiply by 100. If greater than 11 percent modifier is required. Method II: Divide the total time of care provided to patient by 10 (round to the nearest whole number) and add 1 min. to set the minimum time requirement. If treatment total was 60 min., then 10% of 6 min PT CQ modifier applied: CQ Modifier applied Procedure Charges Therapeutic Exercise 30 minutes: Yes
--- NOTE | 2024-12-03 14:05 | PT.ODAYNRPT ---
PT Outpatient Daily Note OP Daily Note Outpatient Physical Therapy Treatment Date: 12/03/24 Visit Reasons: gait and balance Subjective: Pt's MD is setting her up with a soft work cigar machine operator at [facility]. Pt's balance is okay but looks feels weak with decrease endurance Objective: Sit-Stand Test: 12 reps; sharpen romber sec Assessment: patient's sharpen romberg has improved leading to better static balance noted with closed chain exercises. Pt's O2 sat lingers around 90%-95% with exercises increase to 97-98% post exercising after 5 sec of rest Plan: Continue with PT Length of Time (minutes) of Treatment: 30 Minutes Procedure Charges Therapeutic Exercise 30 minutes: Yes
--- NOTE | 2024-12-05 14:59 | PT.ODAYNRPT ---
PT Outpatient Daily Note OP Daily Note Outpatient Physical Therapy Treatment Date: 12/05/24 Visit Reasons: gait and balance Subjective: Pt always feel imbalance. Pt mentioned she notice left knee weakness due to bone on bone . 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 Pt is lazy over the weekend due to no one supervising her on the treadmill Objective: Please see flow chart for list of ther ex perfomed Assessment: difficulty with tandem walking without hands due to imbalance; improved with finger tips assist. Slight imbalance with side step on airex and will use hand to help balance intermittently. Plan: Continue with PT Length of Time (minutes) of Treatment: 30 Minutes Procedure Charges Therapeutic Exercise 30 minutes: Yes
== END 2024-12-05 23:59 | disposition home or self-care (01) ==
LOC: CPTX 13:30
PROVIDERS: PCP Physician Assistant; Referring Provider Physician Assistant; Visit Provider Physician Assistant
DX: M54.12 Radiculopathy, cervical region (principal); M48.02 Spinal stenosis, cervical region
CPT/HCPCS: 97110

== ENCOUNTER 2024-12-10 13:54 | Outpatient (RCR) | payer MEDICARE, BC, SELFPAY ==
--- NOTE | 2024-12-10 15:37 | PTNOTE_ITS ---
PT OP Progress/Discharge Note Date of Service: 12/10/24 Progress Note/DC Note Progress Note/Discharge Note: DC Note Patient Information Visit Reasons: Gait and balance Medical Diagnosis: Decrease Balance; Gait Difficulty Treatment Dx #1: Gait Difficulty Treatment Dx #2: Balance Deficits Service Discharge Date: 12/10/24 Status Subjective: Pt's legs still feels stronger but ankle feels weak, however, has been able to perform most ADLs, chores, and walking with less limitation. Pt denies of any falls lately. Pt mentioned that she's been able to walk ~ 25 minutes on the treadmill with supervision from a military lawyer. Pt will be consulting with Crystal Cutter tomorrow. Objective: BLE AROM: all motions are WNL BLE MMTs: grossly 4/5 Sit-Stand: 12 reps Sharpen Romber sec TU sec Assessment: Pt demonstrate functional BLE AROM, strength, and balance allowing her to resume ADLs with less limitation. At this time Pt's main limitation from increasing prolonged activities relates to oxygen saturation which she continues to monitor daily. Pt has plateau towards physical therapy goals and will no longer benefit from physical therapy. Pt has been instructed on HEP last session and educated to continue exercises to maintain overall mobility. Pt performed all exercises safely, thank you for your referrals. Plan: D/C home with HEP and follow up with MD MANRIQUE Procedure Charges Therapeutic Exercise 30 minutes: Yes
== END 2025-01-05 23:59 | disposition home or self-care (01) ==
LOC: CPTX 13:54
PROVIDERS: PCP Physician Assistant Medical; Referring Provider Physician Assistant Medical; Visit Provider Physician Assistant Medical
DX: R26.89 Other abnormalities of gait and mobility (principal); R26.2 Difficulty in walking, not elsewhere classified
CPT/HCPCS: 97110